=== PATIENT | male | born 1935 | race Caucasian/White ===

== ENCOUNTER 2016-03-18 11:35 | Inpatient (IN) | payer OTHER, MEDICARE ==
--- NOTE | 2016-03-18 11:46 | PN ---
Progress Note (short form) - Note Progress Note: Cardiology Consult/ H & P Dictated 80M with DM, HTN, hyperlipidemia, history of small bowel obstruction called Dr. Borjas today feeling feverish and with body aches, malaise, cough. Referred to ER for fever work up. REC: 1. Fever work up: CXR, UA and Culture, Blood cultures, Influenza swab 2. Basic labs: CBC, Chem 7, LFTs 3. Pulmonary and ID consults
[2016-03-18] MEDS ORDERED: SODIUM CHLORIDE 500 ML IV ONE (11:55)
[2016-03-18] MEDS ORDERED: SODIUM CHLORIDE 1,000 ML IV STA (11:55)
--- NOTE | 2016-03-18 11:59 | PDOC ---
History of Present Illness - General History Source: Patient Exam Limitations: No Limitations - History of Present Illness Initial Comments: 03/18/16 12:32 The patient is an 80 year old male with significant past medical history of hypertension, hyperlipidemia, diabetes, prior admission in July 2014 with pneumonia who presents to the emergency department sent by his PMD Dr. Borjas for further evaluation of cough, SOB, and fever for the last several days. The patient states he has had a productive cough for several weeks with yellow sputum. He also states he has been short of breath for the last several weeks even at rest. He reports some associated leg swelling. The patients son notes that 4 days ago his o2 sats were 84 on room air. The patient notes a fever today , Tmax 101 F, with associated chills. He has taken Tylenol for his symptoms with slight relief. He reports associated body aches and generalized weakness. The patient denies any nausea, vomiting, abdominal pain or diarrhea. The patient denies dysuria, frequency, and hematuria. He denies any sick contacts or recent travels. 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 Emmanuel <Brooke Norwood - Last Filed: 03/18/16 12:32> <Sage Gruber - Last Filed: 03/18/16 17:12> - General Chief Complaint: Lightheaded Stated Complaint: FEVER, HEADACHE, HIGH BP, DIZZINESS Time Seen by Provider: 03/18/16 11:55 Past History <Brooke Norwood - Last Filed: 03/18/16 12:32> - Past Medical History Diabetes: Yes HTN: Yes Hypercholesterolemia: Yes - Psycho/Social/Smoking Cessation Hx Anxiety: No Suicidal Ideation: No Smoking History: Never smoked Have you smoked in the past 12 months: No If you are a former smoker, when did you quit?: 25 yrs ago Hx Alcohol Use: Yes (SOCIAL) Drug/Substance Use Hx: No Substance Use Type: None Hx Substance Use Treatment: No <Sage Gruber - Last Filed: 03/18/16 17:12> - Past Medical History Allergies/Adverse Reactions: Allergies Allergy/AdvReac Type Severity Reaction Status Date / Time No Known Allergies Allergy Verified 03/18/16 11:51 Home Medications: Ambulatory Orders Atorvastatin Ca [Lipitor] 40 mg PO HS 11/24/13 Nifedipine [Procardia Xl] 60 mg PO DAILY 11/24/13 Aspirin [ASA -] 81 mg PO DAILY 07/24/14 Furosemide [Lasix -] 20 mg PO DAILY 07/24/14 Metformin HCl [Glucophage -] 500 mg PO DAILY 07/24/14 Quinapril HCl [Accupril -] 40 mg PO DAILY 07/24/14 Review of Systems - Review of Systems Constitutional: Yes: Chills, Fever. No: Night Sweats Respiratory: Yes: Cough, Shortness of Breath, SOB with Exertion Cardiac (ROS): Yes: Edema. No: Chest Pain, Palpitations ABD/GI: No: Diarrhea, Vomiting : No: Dysuria All Other Systems: Reviewed and Negative <Sage Gruber - Last Filed: 03/18/16 17:12> *Physical Exam - Vital Signs Last Vital Signs Temp Pulse Resp BP Pulse Ox 98.9 F 95 H 20 139/69 90 L 03/18/16 11:48 03/18/16 11:48 03/18/16 11:48 03/18/16 11:48 03/18/16 11:48 - Physical Exam Comments: 03/18/16 12:32 GENERAL: The patient is awake, alert, and fully oriented, in no acute distress. HEAD: Normal with no signs of trauma. EYES: Pupils equal, round and reactive to light, extraocular movements intact, sclera anicteric, conjunctiva clear with no pallor. ENT: Ears normal, nares patent, oropharynx clear without exudates. Moist mucous membranes. NECK: Normal range of motion, supple without lymphadenopathy, JVD, or masses. LUNGS: +Slightly decreased breath sounds bilaterally with expiratory wheezing bibasilar. No accessory muscle use. HEART: Regular rate and rhythm, normal S1 and S2 without murmur or rub. ABDOMEN: Soft/nontender/nondistended. BS wnl. No guarding or rebound. No palpable masses. No hepatosplenomegaly. EXTREMITIES:1+ pitting edema bilaterally to the mid lipscomb. Normal range of motion. No clubbing or cyanosis. No cords, erythema, or tenderness. NEUROLOGICAL: Cranial nerves II through XII grossly intact. Normal speech, normal gait. PSYCH: Normal mood, normal affect. SKIN: Warm, Dry, normal turgor, no rashes or lesions noted. <Brooke Norwood - Last Filed: 03/18/16 12:32> - Vital Signs Last Vital Signs Temp Pulse Resp BP Pulse Ox 98.9 F 95 H 20 139/69 90 L 03/18/16 11:48 03/18/16 11:48 03/18/16 11:48 03/18/16 11:48 03/18/16 11:48 <Sage Gruber - Last Filed: 03/18/16 17:12> Heart Score/ECG Review #1 ECG reviewed & interpreted by me at: 12:17 General ECG Interpretation: Sinus Rhythm, Normal Rate (94), Normal Intervals ( RBBB), No acute ischemic changes Compared to previous ECG there are: No significant change (c/w 07/2014) <Sage Gruber - Last Filed: 03/18/16 17:12> ED Treatment Course - LABORATORY CBC & Chemistry Diagram: 03/18/16 12:21 03/18/16 12:21 <Sage Gruber - Last Filed: 03/18/16 17:12> Medical Decision Making - Medical Decision Making 03/18/16 12:19 A portion of this note was documented by scribe services under my direction. I have reviewed the details of the note, within reason, and agree with the documentation with the following case summary and management plan written by me. 80-year-old male with history of hypertension, high cholesterol, diabetes, prior admission back in 2014 for pneumonia now presents with cough for 2 or 3 weeks now associated with fever for the last 4 days and progressive dyspnea on exertion. Patient called Dr. Borjas, his primary physician, who referred him to the ED. He was greeted by Dr. Emmanuel, who was made aware of the patient and saw him in the ED. Afebrile. O2 sat 90% on room air at triage Overall well-appearing with active cough during history Bibasilar decreased breath sounds with crackles and localized wheezing, otherwise good air entry Abdomen benign. Chronic ankle edema 80-year-old male with fever and cough, now feeling generally weak with shortness of breath. Rule out pneumonia, question CHF, question influenza. Sepsis protocol initiated given fevers at home Supplemental O2 sat, EKG, chest x-ray Will continue to follow with Dr. Emmanuel, likely admission to his service. 03/18/16 13:37 Chest x-ray read as normal, influenza negative. Labs notable for white count of 12, elevated lactate of 2.4, otherwise normal chemistries and normal troponin. Will proceed with IV fluid hydration. As discussed with Dr. Emmanuel, will check CTA to r/o PE or underlying lung disease. Will proceed with admission to Dr. Emmanuel for further workup, ? COPD, less likely CHF. Received nebs, will give steroids. 03/18/16 16:51 Lactate improved and normalized, CTA shows no PE but positive left lower lobe consolidation. Patient was treated for community-acquired pneumonia with ceftriaxone and azithromycin, given steroids. Will proceed with admission. <Sage Gruber - Last Filed: 03/18/16 17:12> *DC/Admit/Observation/Transfer - Attestations Scribe Attestion: 03/18/16 12:04 Documentation prepared by Brooke Norwood, acting as senior medical technologist for Sage Gruber MD. <Brooke Norwood - Last Filed: 03/18/16 12:32> - Discharge Dispostion Admit: Yes <Sage Gruber - Last Filed: 03/18/16 17:12> Diagnosis at time of Disposition: Cough, Hypoxia Fever Qualifiers: Fever type: unspecified Qualified Code(s): R50.9 - Fever, unspecified Pneumonia Qualifiers: Pneumonia type: due to unspecified organism Laterality: left Lung location: lower lobe of lung Qualified Code(s): J18.9 - Pneumonia, unspecified organism - Discharge Dispostion Condition at time of disposition: Fair - Referrals
[2016-03-18] MEDS ORDERED: ALBUTEROL SO4 2.5/IPRATROPIUM 0.5 INH SOL 3 ML VIAL.NEB. NEB ONE ×2 (12:36→12:45)
[2016-03-18 12:39] LABS: VENOUS PH 7.47 (7.31-7.41)
--- NOTE | 2016-03-18 12:43 | CONS ---
DATE OF CONSULTATION: DATE OF DICTATION: 03/18/2016 CHIEF COMPLAINT: Asked by Dr. Borjas to admit patient for fever workup. HISTORY OF PRESENT ILLNESS: The patient is my office patient. He is an 80-year-old male with diabetes, hypertension, hyperlipidemia, history of small-bowel obstruction, who presents to the ER after speaking with Dr. Borjas with 1 to 2 days of malaise, generalized fatigue, fever, and cough. He was sent to the ER for a fever workup. He feels diffuse body chills, generalized fatigue, and diffuse aches and pains. He denies nausea, vomiting. He denies diarrhea. He denies chest pain or palpitations. PAST MEDICAL HISTORY: Includes hypertension, diabetes, chronic diastolic CHF, hyperlipidemia. ALLERGIES: He has no known drug allergies. HOME MEDICATIONS: Include Accupril, Procardia, Glucophage, Lasix, Lipitor, and aspirin. FAMILY HISTORY: Brother had a myocardial infarction and in his late 60s. SOCIAL HISTORY: Nonsmoker. Drinks several glasses of wine daily. PHYSICAL EXAMINATION:General: Alert and oriented, in no distress. Vital Signs: Temperature 98.9 in the ER, pulse 95 and regular, blood pressure 140/70, weight 407, O2 saturation is 90% on room air. Neck: No JVD. Heart: S1, 2 regular. No murmurs. Chest: Diffuse mild expiratory wheezing. No rales. Abdomen: Soft, nontender. No rebound or guarding. Extremities: With chronic 1+ bilateral lower extremity edema. DIAGNOSTIC DATA: Labs are pending. EKG is pending. Chest x-ray is not officially read but upon my review shows no effusions, no clear infiltrates, possible atelectasis versus early infiltrate in the right middle lobe/lower lobe. ASSESSMENT: An 80-year-old man with diabetes presents to the emergency room with several days of cough, generalized malaise, fevers, and chills. PLAN: 1. Fever workup, including blood cultures, urine cultures, flu swab. 2. Pulmonary evaluation. 3. ID consultation. 4. Supplemental O2 as needed to maintain O2 saturation greater than 90%. 5. Will admit to telemetry. Further recommendations pending above diagnostics. MARY MEAD M.D. [id number]
[2016-03-18 12:45] LABS: BASOPHIL 0.6 % (0-2.0); EOSINOPHIL 1.2 % (0-4.5); MCH 31.1 pg (25.7-33.7); MCHC 34.3 g/dl (32.0-35.9); MEAN CELL VOLUME 90.6 fl (80-96); MEAN PLT VOLUME 8.1 fl (7.5-11.1); NEUTROPHILS 81.6 % (42.8-82.8); PLATELET COUNT 276 K/MM3 (134-434); WHITE BLOOD COUNT 12.1 K/mm3 (4.0-10.0)
[2016-03-18 13:00] LABS: INR 1.09 (0.82-1.09)
[2016-03-18 13:03] LABS: ACTIVATED PTT 35.1 SECONDS (26.9-34.4)
[2016-03-18 13:12] LABS: TROPONIN I < 0.02 ng/ml (0.00-0.05)
[2016-03-18 13:13] LABS: ALBUMIN 3.1 g/dl (3.4-5.0); ANION GAP 11 (8-16); CALCIUM 8.5 mg/dL (8.5-10.1); CO2 27 mmol/L (21-32); CREATININE 1.1 mg/dL (0.7-1.3); GLUCOSE,RANDOM 281 mg/dL (74-106); SGPT/ALT 31 U/L (12-78)
[2016-03-18 13:16] LABS: ALK PHOS 110 U/L (45-117)
[2016-03-18 13:18] LABS: BILIRUBIN,DIRECT < 0.1 mg/dL (0.0-0.2); SGOT/AST 43 U/L (15-37)
[2016-03-18] MEDS ORDERED: SODIUM CHLORIDE 500 ML IV STA (13:36)
[2016-03-18] MEDS ORDERED: methylPREDNISolone NA SUCC 125 MG/2 ML VIAL IVPB ONE (13:40)
[2016-03-18] MEDS ORDERED: AZITHROMYCIN IVPB 500 MG in DEXTROSE 5%-WATER - 250 ML IVPB ONE (13:44)
[2016-03-18] MEDS ORDERED: CEFTRIAXONE 1 GM in DEXTROSE 5%-WATER - 50 ML IVPB ONE (13:44)
[2016-03-18] MEDS ORDERED: methylPREDNISolone NA SUCC 125 MG/2 ML VIAL ONE (13:47)
[2016-03-18] MEDS ORDERED: CEFTRIAXONE 50 ML ONE (13:58)
[2016-03-18] MEDS ORDERED: AZITHROMYCIN IVPB 250 ML IVPB ONE (15:42)
--- NOTE | 2016-03-18 16:04 | EKG ---
Test Reason : Blood Pressure : / mmHG Vent. Rate : 094 BPM Atrial Rate : 094 BPM P-R Int : 148 ms QRS Dur : 142 ms QT Int : 386 ms P-R-T Axes : 073 065 036 degrees QTc Int : 482 ms NORMAL SINUS RHYTHM RIGHT BUNDLE BRANCH BLOCK ABNORMAL ECG WHEN COMPARED WITH ECG OF 24-NOV-2013 14:37, CRITERIA FOR INFERIOR INFARCT ARE NO LONGER PRESENT Confirmed by RAMA ANDERSON, DAY ([id number]) on 03/18/2016 4:03:49 PM Referred By: Confirmed By:DAY ONTIVEROS MD
[2016-03-18 16:13] VITALS: BMI 31.7
[2016-03-18] MEDS ORDERED: metFORMIN HCL 500 MG TABLET (FP) PO SCH (16:30)
[2016-03-18 16:59] LABS: URINE APPEARANCE CLEAR; URINE BILIRUBIN NEGATIVE (NEGATIVE); URINE BLOOD 1+ (NEGATIVE); URINE COLOR LTYELLOW; URINE GLUCOSE (UA) 2+ (NEGATIVE); URINE KETONE TRACE (NEGATIVE); URINE LEUK ESTERASE NEGATIVE (NEGATIVE); URINE NITRITE NEGATIVE (NEGATIVE); URINE PROTEIN NEGATIVE (NEGATIVE); URINE UROBILINOGEN NEGATIVE E.U./dl (0.2-1.0)
[2016-03-18 17:00] LABS: GRANULAR CASTS 1 /lpf; URINE MUCUS RARE; URINE RBC 3 /hpf (0-3); URINE WBC <1 /hpf (3-5)
[2016-03-18] MEDS: INSULIN SLIDING SCALE (NOVOLOG) 1 VIAL SQ SCH (17:03)
[2016-03-18] MEDS ORDERED: ACETAMINOPHEN 325 MG TABLET (FP) PO PRN (17:19)
--- NOTE | 2016-03-18 17:36 | PN ---
Progress Note (short form) - Note Progress Note: ID Consult dictated Community acquired v. atypical LLL pneumonia Possible viral syndrome Exacerbation COPD Pending workup, empiric zithromax/ceftriaxone Bronchodilators/ corticosteroids
--- NOTE | 2016-03-18 18:04 | CONS ---
INFECTIOUS DISEASE CONSULTATION DATE OF CONSULTATION: DATE OF DICTATION: 03/18/2016 HISTORY: Patient is an 80-year-old male evaluated for pneumonia. The patient reports developing worsening cough, sputum production, dyspnea and fever over the past 3-4 days. He had had a cough for approximately 2 weeks prior to onset of worsening symptoms. Family members had reported worsening symptoms over the past 3-4 days. He also experienced fever and lower extremity edema. He presented to the emergency room where he was noted to have fever. Chest x-ray was officially read as negative. Influenza rapid test was negative. He was noted to have an elevated lactic acid level. CAT scan of the chest shows some increased markings at the left lung base. He reports cough productive of yellowish sputum. Denies any hemoptysis. No complaint of chest pain. He has been in contact with a person with respiratory tract illnesses. He is a former smoker. He is up-to-date with respect to influenza and pneumococcal vaccines. No recent travel. No recent hospitalizations or antibiotic therapy. Patient was hospitalized for pneumonia in 2014. PAST MEDICAL HISTORY: Positive for: 1. Diabetes mellitus 2. Hypertension 3. Hypertension 4. Hyperlipidemia 5. Small bowel obstruction He denies history of COPD ALLERGIES: No known allergies MEDICATIONS: 1. Lipitor 2. Procardia 3. Aspirin 4. Lasix 5. Glucophage 6. Accupril SOCIAL HISTORY: Former smoker. Stopped many years ago. SYSTEMS REVIEW: Neurologic: No loss of consciousness, seizure activity, focal weakness Cardiac: Negative for chest pain or palpitations Respiratory: As per HPI Gastrointestinal: Negative for vomiting or diarrhea Genitourinary: Negative for urinary tract infection LAB DATA: 12.1, 81 neutrophils, 8 lymphocytes, 8 monocytes, hematocrit 42.2, platelet count 276. BUN 18, creatinine 1.1. Glucose 281. Urinalysis: 2 white cells. RADIOGRAPHIC FINDINGS: CAT scan shows changes consistent with COPD and patchy left lower lobe infiltrate. PHYSICAL EXAMINATION: General: He is slightly short of breath at rest, on nasal cannula. Vital signs: T-max 100.1, blood pressure 133/65, pulse 84/regular, respirations 18/minute. Sclera anicteric. Heart sounds: S1, S2 Lungs: Scattered rhonchi, basilar crepitations and mild wheezing bilaterally Abdomen: Abdomen is obese, soft, nontender. Extremities: 1+ edema IMPRESSION: 1. Community-acquire atypical left lower lobe pneumonia 2. Possible viral syndrome 3. Chronic obstructive pulmonary disease exacerbation RECOMMENDATIONS: 1. Obtain blood cultures, urine, legionella and pneumococcal antigens 2. Empiric antibiotic coverage with Zithromax and Ceftriaxone 3. Corticosteroids and held bronchodilators. 4. Will follow Thank you for the kind referral. MARY FRANCO M.D. [id number]
[2016-03-18] MEDS: ALBUTEROL SO4 0.083% IH SOL 2.5 MG/3 ML VIAL.NEB. NEB PRN ×2 (18:15→23:24)
[2016-03-19] MEDS: INSULIN SLIDING SCALE (NOVOLOG) 1 VIAL SQ SCH ×3 (06:27→16:59)
[2016-03-19] MEDS: ALBUTEROL SO4 0.083% IH SOL 2.5 MG/3 ML VIAL.NEB. NEB PRN (06:53)
[2016-03-19 07:22] LABS: BASOPHIL 0.8 % (0-2.0); MCH 31.2 pg (25.7-33.7); MCHC 34.4 g/dl (32.0-35.9); MEAN CELL VOLUME 90.6 fl (80-96); NEUTROPHILS 86.8 % (42.8-82.8); PLATELET COUNT 263 K/MM3 (134-434); RDW 12.8 % (11.9-15.9); WHITE BLOOD COUNT 10.9 K/mm3 (4.0-10.0)
[2016-03-19 07:49] LABS: CALCIUM 8.5 mg/dL (8.5-10.1); CREATININE 0.8 mg/dL (0.7-1.3)
[2016-03-19] MEDS ORDERED: PT OWN MED DRAWER 7, Y5N ONE (09:31)
[2016-03-19] MEDS: ASPIRIN 81 MG CHEWABLE TABLETS PO SCH (09:49)
[2016-03-19] MEDS: NIFEdipine E.R 60 MG TABLET (UD) PO SCH (09:49)
[2016-03-19] MEDS: CEFTRIAXONE 100 ML IVPB SCH (09:55)
[2016-03-19] MEDS: AZITHROMYCIN IVPB 250 ML IVPB SCH (09:55)
--- NOTE | 2016-03-19 10:08 | PN ---
Progress Note, Physician Chief Complaint: appreciate ID consult PNA on CTA - Current Medication List Current Medications: Active Medications Acetaminophen (Tylenol -) 650 mg PO Q6H PRN PRN Reason: FEVER OR PAIN Albuterol Sulfate (Ventolin 0.083% Nebulizer Soln -) 1 amp NEB Q4H PRN PRN Reason: SHORT OF BREATH/WHEEZING Last Admin: 03/19/16 06:53 Dose: 1 amp Aspirin (Asa -) 81 mg PO DAILY [facility] Last Admin: 03/19/16 09:49 Dose: 81 mg Azithromycin (Zithromax 500mg Ivpb (Pre-Docked)) 250 mls @ 250 mls/hr IVPB DAILY [facility] Last Admin: 03/19/16 09:55 Dose: 250 mls/hr Ceftriaxone Sodium (Rocephin 2gm Ivpb (Pre-Docked)) 100 mls @ 200 mls/hr IVPB DAILY [facility] Last Admin: 03/19/16 09:55 Dose: 200 mls/hr Insulin Aspart (Novolog Vial Sliding Scale -) 1 vial SQ TIDAC [facility] PRN Reason: Protocol Last Admin: 03/19/16 06:27 Dose: 2 units Nifedipine (Procardia Xl -) 60 mg PO DAILY [facility] Last Admin: 03/19/16 09:49 Dose: 60 mg Quinapril HCl (Accupril -) 20 mg PO DAILY [facility] - Objective Vital Signs: Vital Signs Temperature 98.1 F 03/19/16 06:00 Pulse Rate 76 03/19/16 06:00 Respiratory Rate 20 03/19/16 06:00 Blood Pressure 157/77 03/19/16 06:00 O2 Sat by Pulse Oximetry (%) 93 L 03/18/16 21:00 Constitutional: Yes: No Distress Eyes: Yes: Conjunctiva Clear Cardiovascular: Yes: Regular Rate and Rhythm Respiratory: Yes: Other (expiratory wheezing and rhonchi) Gastrointestinal: Yes: Soft (nontender) Edema: No Neurological: Yes: Alert, Oriented ...Motor Strength: WNL Labs: CBC, BMP 03/19/16 05:35 03/19/16 05:35 INR, PTT INR 1.09 (0.82-1.09) 03/18/16 12:01 Microbiology Laboratory Tests 03/19/16 03/19/16 05:35 05:35 WBC 10.9 H Hgb 13.4 Plt Count 263 Potassium 3.6 D BUN 15 Creatinine 0.8 D Random Glucose 299 H - ....Imaging Cat Scan: Report Reviewed EKG: Image Reviewed Assessment/Plan IMP: DM PNA REC: Abx as per ID Supplimental O2 Nebs Out of bed- venodynes while in bed.
--- NOTE | 2016-03-19 10:39 | PN ---
Progress Note, Physician History of Present Illness: Awake, alert Cough noted Breathing non-labored on nasal cannula Afebrile - Current Medication List Current Medications: Active Medications Acetaminophen (Tylenol -) 650 mg PO Q6H PRN PRN Reason: FEVER OR PAIN Albuterol Sulfate (Ventolin 0.083% Nebulizer Soln -) 1 amp NEB Q4H PRN PRN Reason: SHORT OF BREATH/WHEEZING Last Admin: 03/19/16 06:53 Dose: 1 amp Aspirin (Asa -) 81 mg PO DAILY [facility] Last Admin: 03/19/16 09:49 Dose: 81 mg Azithromycin (Zithromax 500mg Ivpb (Pre-Docked)) 250 mls @ 250 mls/hr IVPB DAILY [facility] Last Admin: 03/19/16 09:55 Dose: 250 mls/hr Ceftriaxone Sodium (Rocephin 2gm Ivpb (Pre-Docked)) 100 mls @ 200 mls/hr IVPB DAILY [facility] Last Admin: 03/19/16 09:55 Dose: 200 mls/hr Insulin Aspart (Novolog Vial Sliding Scale -) 1 vial SQ TIDAC [facility] PRN Reason: Protocol Last Admin: 03/19/16 06:27 Dose: 2 units Nifedipine (Procardia Xl -) 60 mg PO DAILY [facility] Last Admin: 03/19/16 09:49 Dose: 60 mg Quinapril HCl (Accupril -) 20 mg PO DAILY [facility] - Objective Vital Signs: Vital Signs Temperature 98.1 F 03/19/16 06:00 Pulse Rate 76 03/19/16 06:00 Respiratory Rate 20 03/19/16 06:00 Blood Pressure 157/77 03/19/16 06:00 O2 Sat by Pulse Oximetry (%) 93 L 03/18/16 21:00 Constitutional: Yes: No Distress Eyes: Yes: Conjunctiva Clear Cardiovascular: Yes: Regular Rate and Rhythm, S1, S2 Respiratory: Yes: Other (+ crepitations at bases) Gastrointestinal: Yes: Normal Bowel Sounds, Soft. No: Tenderness Edema: Yes Labs: CBC, BMP 03/19/16 05:35 03/19/16 05:35 INR, PTT INR 1.09 (0.82-1.09) 03/18/16 12:01 Assessment/Plan Community acquired v. atypical LLL pneumonia Possible viral syndrome Probable COPD exacerbation Await cultures Continue empiric zithromax/ ceftriaxone Bronchodilators
[2016-03-19] MEDS: QUINAPRIL HCL 20 MG TABLET (FP) PO SCH (11:00)
--- NOTE | 2016-03-19 16:48 | CONSULT ---
Consult Consult Specialty:: PULMONARY Referred by:: Dr. Emmanuel Reason for Consultation:: pneumonia - History of Present Illness Chief Complaint: fevers, cough, shortness of breath History of Present Illness: 80yo male with h/o HTN, DM, hyperlipidemia who presents with cough, fevers and shortness of breath x 2 weeks. He denies any chest pain or palpitations. + subjective fevers, recorded to 102 at home. He reports sick contacts, his brother is being treated for pneumonia. +cough productive of yellow sputum and wheezing. Son had a pulse oximeter at home and reported that his SpO2 was 84% on room air. He is not on home O2. He has not been on any recent antibiotics or recent hospitalizations. No recent travel. He did receive his flu vaccine this year. 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 History of Recent Travel: No Home Medications - Allergies Allergies/Adverse Reactions: Allergies Allergy/AdvReac Type Severity Reaction Status Date / Time No Known Allergies Allergy Verified 03/18/16 11:51 - Home Medications Home Medications: Ambulatory Orders Atorvastatin Ca [Lipitor] 40 mg PO HS 11/24/13 Nifedipine [Procardia Xl] 60 mg PO DAILY 11/24/13 Aspirin [ASA -] 81 mg PO DAILY 07/24/14 Furosemide [Lasix -] 20 mg PO DAILY 07/24/14 Metformin HCl [Glucophage -] 500 mg PO DAILY 07/24/14 Quinapril HCl [Accupril -] 40 mg PO DAILY 07/24/14 Family Disease History - Family Disease History Family Disease History: Other: Mother (thyroid cancer) Review of Systems - Review of Systems Constitutional: reports: Chills, Fever, Malaise Eyes: denies: Recent Change in Vision HENT: denies: Nasal Congestion, Throat Pain Neck: denies: Stiffness, Tenderness Cardiovascular: reports: Shortness of Breath. denies: Chest Pain, Edema, Palpitations Respiratory: reports: Cough, SOB, SOB on Exertion, Wheezing. denies: Hemoptysis Gastrointestinal: denies: Abdominal Pain, Nausea, Vomiting Genitourinary: denies: Dysuria, Hematuria Musculoskeletal: reports: Muscle Cramps Neurological: reports: Dizziness. denies: Headache Physical Exam Vital Sings: Vital Signs Temperature 98.7 F 03/19/16 14:48 Pulse Rate 78 03/19/16 14:48 Respiratory Rate 20 03/19/16 14:48 Blood Pressure 138/64 03/19/16 14:48 O2 Sat by Pulse Oximetry (%) 96 03/19/16 12:10 Constitutional: Yes: Calm Eyes: Yes: Conjunctiva Clear, EOM Intact HENT: Yes: Atraumatic, Normocephalic Neck: Yes: Trachea Midline Cardiovascular: Yes: Regular Rate and Rhythm Respiratory: Yes: Rhonchi, Wheezes ...Clubbing: No Gastrointestinal: Yes: Normal Bowel Sounds, Soft. No: Tenderness Edema: Yes (trace) Neurological: Yes: Alert, Oriented Labs: CBC, BMP 03/19/16 05:35 03/19/16 05:35 Imaging - Results Cat Scan: Report Reviewed, Image Reviewed (LLL infiltrate) Problem List - Problems (1) Pneumonia Code(s): J18.9 - PNEUMONIA, UNSPECIFIED ORGANISM Qualifiers: Pneumonia type: due to unspecified organism Laterality: left Lung location: lower lobe of lung Qualified Code(s): J18.9 - Pneumonia, unspecified organism (2) Hypoxia Code(s): R09.02 - HYPOXEMIA (3) Diabetes Code(s): E11.9 - TYPE 2 DIABETES MELLITUS WITHOUT COMPLICATIONS (4) HTN (hypertension) Code(s): I10 - ESSENTIAL (PRIMARY) HYPERTENSION (5) Acute bronchospasm Code(s): J98.01 - ACUTE BRONCHOSPASM Assessment/Plan LLL Pneumonia Acute Bronchospasm HTN DM - continue antibiotics for CAP - f/u cultures - will give short course of medrol for bronchospasm - inhaled bronchodilators - glucose control while on systemic steroids - O2 to keep SpO2 >90% - DVT prophylaxis Thank you for this consult Blake Cueto MD
[2016-03-19] MEDS: ALBUTEROL SO4 2.5/IPRATROPIUM 0.5 INH SOL 3 ML VIAL.NEB. NEB SCH (21:45)
[2016-03-19] MEDS: methylPREDNISolone NA SUCC 40 MG/1 ML VIAL IVPB SCH (22:57)
[2016-03-20] MEDS: INSULIN SLIDING SCALE (NOVOLOG) 1 VIAL SQ SCH ×5 (06:18→22:19)
[2016-03-20] MEDS: ALBUTEROL SO4 2.5/IPRATROPIUM 0.5 INH SOL 3 ML VIAL.NEB. NEB SCH ×3 (06:38→22:03)
[2016-03-20 08:30] LABS: EOSINOPHIL 0.1 % (0-4.5); MCH 30.9 pg (25.7-33.7); MCHC 33.8 g/dl (32.0-35.9); MEAN CELL VOLUME 91.4 fl (80-96); MEAN PLT VOLUME 8.1 fl (7.5-11.1); PLATELET COUNT 320 K/MM3 (134-434); RDW 13.2 % (11.9-15.9); WHITE BLOOD COUNT 9.3 K/mm3 (4.0-10.0)
[2016-03-20 08:38] LABS: CALCIUM 8.6 mg/dL (8.5-10.1)
[2016-03-20 08:42] LABS: CREATININE 0.8 mg/dL (0.7-1.3)
[2016-03-20] MEDS: ASPIRIN 81 MG CHEWABLE TABLETS PO SCH ×2 (08:48→09:23)
[2016-03-20] MEDS: QUINAPRIL HCL 20 MG TABLET (FP) PO SCH ×2 (08:48→09:23)
[2016-03-20] MEDS: NIFEdipine E.R 60 MG TABLET (UD) PO SCH ×2 (08:48→09:23)
[2016-03-20] MEDS: AZITHROMYCIN IVPB 250 ML IVPB SCH ×2 (08:49→09:23)
[2016-03-20] MEDS: CEFTRIAXONE 100 ML IVPB SCH ×2 (08:49→09:23)
[2016-03-20] MEDS: methylPREDNISolone NA SUCC 40 MG/1 ML VIAL IVPB SCH ×3 (08:50→22:20)
--- NOTE | 2016-03-20 09:44 | PN ---
Progress Note, Physician Chief Complaint: feels fine TELE: sinus out of bed History of Present Illness: no BM - Current Medication List Current Medications: Active Medications Acetaminophen (Tylenol -) 650 mg PO Q6H PRN PRN Reason: FEVER OR PAIN Albuterol Sulfate (Ventolin 0.083% Nebulizer Soln -) 1 amp NEB Q4H PRN PRN Reason: SHORT OF BREATH/WHEEZING Last Admin: 03/19/16 06:53 Dose: 1 amp Albuterol/Ipratropium (Duoneb -) 1 amp NEB TIDR [facility] Last Admin: 03/20/16 06:38 Dose: 1 amp Aspirin (Asa -) 81 mg PO DAILY [facility] Last Admin: 03/20/16 09:23 Dose: Not Given Azithromycin (Zithromax 500mg Ivpb (Pre-Docked)) 250 mls @ 250 mls/hr IVPB DAILY [facility] Last Admin: 03/20/16 09:23 Dose: Not Given Ceftriaxone Sodium (Rocephin 2gm Ivpb (Pre-Docked)) 100 mls @ 200 mls/hr IVPB DAILY [facility] Last Admin: 03/20/16 09:23 Dose: Not Given Insulin Aspart (Novolog Vial Sliding Scale -) 1 vial SQ TIDAC [facility] PRN Reason: Protocol Last Admin: 03/20/16 06:18 Dose: 4 units Methylprednisolone Sodium Succinate (Solu-Medrol -) 40 mg IVPB BID [facility] Last Admin: 03/20/16 09:23 Dose: Not Given Nifedipine (Procardia Xl -) 60 mg PO DAILY [facility] Last Admin: 03/20/16 09:23 Dose: Not Given Quinapril HCl (Accupril -) 20 mg PO DAILY [facility] Last Admin: 03/20/16 09:23 Dose: Not Given - Objective Vital Signs: Vital Signs Temperature 98.0 F 03/20/16 06:00 Pulse Rate 70 03/20/16 06:00 Respiratory Rate 20 03/20/16 06:00 Blood Pressure 147/62 03/20/16 06:00 O2 Sat by Pulse Oximetry (%) 93 L 03/19/16 21:00 Constitutional: Yes: No Distress Cardiovascular: Yes: Regular Rate and Rhythm Respiratory: Yes: Other (decreased at bases, no wheezing) Gastrointestinal: Yes: Soft Edema: No Neurological: Yes: Alert Labs: CBC, BMP 03/20/16 06:05 03/20/16 06:05 INR, PTT INR 1.09 (0.82-1.09) 03/18/16 12:01 Microbiology 03/18/16 12:00 Blood - Peripheral Venous Blood Culture - Preliminary NO GROWTH OBTAINED AFTER 24 HOURS, INCUBATION TO CONTINUE FOR 4 DAYS. 03/18/16 12:00 Blood - Peripheral Venous Blood Culture - Preliminary NO GROWTH OBTAINED AFTER 24 HOURS, INCUBATION TO CONTINUE FOR 4 DAYS. Laboratory Tests 03/20/16 03/20/16 06:05 06:05 WBC 9.3 Hgb 13.5 Plt Count 320 D Sodium 136 Potassium 4.1 BUN 21 H D Creatinine 0.8 Assessment/Plan Assessment/Plan IMP: DM PNA REC: Abx as per ID Supplimental O2 as needed Nebs Out of bed- venodynes while in bed. Colace PRN Plan for d/c when ID determines abx can be swtiched to PO.
[2016-03-20] MEDS: DOCUSATE SODIUM 100 MG CAPSULE (FP) PO SCH ×2 (10:53→22:18)
--- NOTE | 2016-03-20 12:22 | PN ---
Progress Note, Physician History of Present Illness: PULMONARY - Current Medication List Current Medications: Active Medications Acetaminophen (Tylenol -) 650 mg PO Q6H PRN PRN Reason: FEVER OR PAIN Albuterol Sulfate (Ventolin 0.083% Nebulizer Soln -) 1 amp NEB Q4H PRN PRN Reason: SHORT OF BREATH/WHEEZING Last Admin: 03/19/16 06:53 Dose: 1 amp Albuterol/Ipratropium (Duoneb -) 1 amp NEB TIDR [facility] Last Admin: 03/20/16 06:38 Dose: 1 amp Aspirin (Asa -) 81 mg PO DAILY [facility] Last Admin: 03/20/16 09:23 Dose: Not Given Docusate Sodium (Colace -) 100 mg PO BID [facility] Last Admin: 03/20/16 10:53 Dose: 100 mg Azithromycin (Zithromax 500mg Ivpb (Pre-Docked)) 250 mls @ 250 mls/hr IVPB DAILY [facility] Last Admin: 03/20/16 09:23 Dose: Not Given Ceftriaxone Sodium (Rocephin 2gm Ivpb (Pre-Docked)) 100 mls @ 200 mls/hr IVPB DAILY [facility] Last Admin: 03/20/16 09:23 Dose: Not Given Insulin Aspart (Novolog Vial Sliding Scale -) 1 vial SQ TIDAC [facility] PRN Reason: Protocol Methylprednisolone Sodium Succinate (Solu-Medrol -) 40 mg IVPB BID [facility] Last Admin: 03/20/16 09:23 Dose: Not Given Nifedipine (Procardia Xl -) 60 mg PO DAILY [facility] Last Admin: 03/20/16 09:23 Dose: Not Given Quinapril HCl (Accupril -) 20 mg PO DAILY [facility] Last Admin: 03/20/16 09:23 Dose: Not Given - Objective Vital Signs: Vital Signs Temperature 98.0 F 03/20/16 06:00 Pulse Rate 70 03/20/16 06:00 Respiratory Rate 20 03/20/16 06:00 Blood Pressure 147/62 03/20/16 06:00 O2 Sat by Pulse Oximetry (%) 93 L 03/19/16 21:00 Constitutional: Yes: Well Nourished, Calm Eyes: Yes: WNL HENT: Yes: WNL Neck: Yes: WNL Cardiovascular: Yes: Regular Rate and Rhythm, S1, S2 Respiratory: Yes: Rhonchi (BILATERAL RHONCHI) Gastrointestinal: Yes: Normal Bowel Sounds, Soft Extremities: Yes: WNL Edema: No Labs: CBC, BMP 03/20/16 06:05 03/20/16 06:05 INR, PTT INR 1.09 (0.82-1.09) 03/18/16 12:01 Assessment/Plan Problem List - Problems (1) Pneumonia Code(s): J18.9 - PNEUMONIA, UNSPECIFIED ORGANISM Qualifiers: Pneumonia type: due to unspecified organism Laterality: left Lung location: lower lobe of lung Qualified Code(s): J18.9 - Pneumonia, unspecified organism (2) Hypoxia Code(s): R09.02 - HYPOXEMIA (3) Diabetes Code(s): E11.9 - TYPE 2 DIABETES MELLITUS WITHOUT COMPLICATIONS (4) HTN (hypertension) Code(s): I10 - ESSENTIAL (PRIMARY) HYPERTENSION (5) Acute bronchospasm Code(s): J98.01 - ACUTE BRONCHOSPASM Assessment/Plan LLL Pneumonia Acute Bronchospasm HTN DM - continue antibiotics for CAP - continue medrol - inhaled bronchodilators - glucose control while on systemic steroids - O2 to keep SpO2 >90% - DVT prophylaxis DR MOLINA
--- NOTE | 2016-03-20 15:34 | PN ---
Progress Note, Physician History of Present Illness: No complaints No c/o chest pain/ dyspnea/ cough No c/o fever/chills Temps down- afebrile WBC WNL Blood c/s no growth - Current Medication List Current Medications: Active Medications Acetaminophen (Tylenol -) 650 mg PO Q6H PRN PRN Reason: FEVER OR PAIN Albuterol Sulfate (Ventolin 0.083% Nebulizer Soln -) 1 amp NEB Q4H PRN PRN Reason: SHORT OF BREATH/WHEEZING Last Admin: 03/19/16 06:53 Dose: 1 amp Albuterol/Ipratropium (Duoneb -) 1 amp NEB TIDR [facility] Last Admin: 03/20/16 13:56 Dose: 1 amp Aspirin (Asa -) 81 mg PO DAILY [facility] Last Admin: 03/20/16 09:23 Dose: Not Given Docusate Sodium (Colace -) 100 mg PO BID [facility] Last Admin: 03/20/16 10:53 Dose: 100 mg Azithromycin (Zithromax 500mg Ivpb (Pre-Docked)) 250 mls @ 250 mls/hr IVPB DAILY [facility] Last Admin: 03/20/16 09:23 Dose: Not Given Ceftriaxone Sodium (Rocephin 2gm Ivpb (Pre-Docked)) 100 mls @ 200 mls/hr IVPB DAILY [facility] Last Admin: 03/20/16 09:23 Dose: Not Given Insulin Aspart (Novolog Vial Sliding Scale -) 1 vial SQ TIDAC [facility] PRN Reason: Protocol Last Admin: 03/20/16 13:57 Dose: 12 units Methylprednisolone Sodium Succinate (Solu-Medrol -) 40 mg IVPB BID [facility] Last Admin: 03/20/16 09:23 Dose: Not Given Nifedipine (Procardia Xl -) 60 mg PO DAILY [facility] Last Admin: 03/20/16 09:23 Dose: Not Given Quinapril HCl (Accupril -) 20 mg PO DAILY [facility] Last Admin: 03/20/16 09:23 Dose: Not Given - Objective Vital Signs: Vital Signs Temperature 98.2 F 03/20/16 14:10 Pulse Rate 73 03/20/16 14:10 Respiratory Rate 20 03/20/16 14:10 Blood Pressure 142/65 03/20/16 14:10 O2 Sat by Pulse Oximetry (%) 92 L 03/20/16 13:55 Constitutional: Yes: No Distress Eyes: Yes: Conjunctiva Clear Cardiovascular: Yes: Regular Rate and Rhythm, S1, S2 Respiratory: Yes: CTA Bilaterally Gastrointestinal: Yes: Normal Bowel Sounds, Soft. No: Tenderness Edema: Yes Edema: LLE: 1+, RLE: 1+ Labs: CBC, BMP 03/20/16 06:05 03/20/16 06:05 INR, PTT INR 1.09 (0.82-1.09) 03/18/16 12:01 Assessment/Plan Community acquired v. atypical LLL pneumonia Possible viral syndrome Probable COPD exacerbation Continue empiric zithromax/ ceftriaxone Bronchodilators
[2016-03-20] MEDS: INSULIN DETEMIR 100 UNITS/ML MDV SQ SCH (21:00)
[2016-03-21] MEDS: INSULIN SLIDING SCALE (NOVOLOG) 1 VIAL SQ SCH ×4 (06:17→22:52)
[2016-03-21] MEDS: metFORMIN HCL 500 MG TABLET (FP) PO SCH ×2 (06:17→17:13)
[2016-03-21] MEDS: INSULIN DETEMIR 100 UNITS/ML MDV SQ SCH (06:17)
[2016-03-21] MEDS: ALBUTEROL SO4 2.5/IPRATROPIUM 0.5 INH SOL 3 ML VIAL.NEB. NEB SCH ×3 (06:58→23:40)
--- NOTE | 2016-03-21 10:05 | PN ---
Progress Note, Physician - Current Medication List Current Medications: Active Medications Acetaminophen (Tylenol -) 650 mg PO Q6H PRN PRN Reason: FEVER OR PAIN Albuterol Sulfate (Ventolin 0.083% Nebulizer Soln -) 1 amp NEB Q4H PRN PRN Reason: SHORT OF BREATH/WHEEZING Last Admin: 03/19/16 06:53 Dose: 1 amp Albuterol/Ipratropium (Duoneb -) 1 amp NEB TIDR [facility] Last Admin: 03/21/16 06:58 Dose: 1 amp Aspirin (Asa -) 81 mg PO DAILY [facility] Last Admin: 03/20/16 09:23 Dose: Not Given Docusate Sodium (Colace -) 100 mg PO BID [facility] Last Admin: 03/20/16 22:18 Dose: 100 mg Azithromycin (Zithromax 500mg Ivpb (Pre-Docked)) 250 mls @ 250 mls/hr IVPB DAILY [facility] Last Admin: 03/20/16 09:23 Dose: Not Given Ceftriaxone Sodium (Rocephin 2gm Ivpb (Pre-Docked)) 100 mls @ 200 mls/hr IVPB DAILY [facility] Last Admin: 03/20/16 09:23 Dose: Not Given Insulin Aspart (Novolog Vial Sliding Scale -) 1 vial SQ ACHS [facility] PRN Reason: Protocol Last Admin: 03/21/16 06:17 Dose: 5 units Insulin Detemir (Levemir Vial) 25 units SQ AM [facility] Last Admin: 03/21/16 06:17 Dose: 25 units Metformin HCl (Glucophage -) 500 mg PO BID@0700,1630 [facility] Last Admin: 03/21/16 06:17 Dose: 500 mg Methylprednisolone Sodium Succinate (Solu-Medrol -) 40 mg IVPB BID [facility] Last Admin: 03/20/16 22:20 Dose: 40 mg Nifedipine (Procardia Xl -) 60 mg PO DAILY [facility] Last Admin: 03/20/16 09:23 Dose: Not Given Quinapril HCl (Accupril -) 20 mg PO DAILY [facility] Last Admin: 03/20/16 09:23 Dose: Not Given - Objective Vital Signs: Vital Signs Temperature 97.8 F 03/21/16 06:00 Pulse Rate 66 03/21/16 06:00 Respiratory Rate 20 03/21/16 06:00 Blood Pressure 140/72 03/21/16 06:00 O2 Sat by Pulse Oximetry (%) 94 L 03/20/16 21:00 Eyes: Yes: WNL, Conjunctiva Clear, EOM Intact HENT: Yes: WNL, Atraumatic, Normocephalic Neck: Yes: WNL, Supple, Trachea Midline Cardiovascular: Yes: WNL, Regular Rate and Rhythm Respiratory: Yes: WNL, Regular, CTA Bilaterally Gastrointestinal: Yes: WNL, Normal Bowel Sounds Genitourinary: Yes: WNL Musculoskeletal: Yes: WNL Extremities: Yes: WNL Edema: No Integumentary: Yes: WNL Neurological: Yes: WNL, Alert, Oriented ...Motor Strength: WNL Psychiatric: Yes: WNL Labs: CBC, BMP 03/20/16 06:05 03/20/16 06:05 INR, PTT INR 1.09 (0.82-1.09) 03/18/16 12:01 Assessment/Plan IMP: DM PNA REC: Abx as per ID Supplimental O2 as needed Nebs Out of bed- venodynes while in bed. Colace PRN Plan for d/c when ID determines abx can be swtiched to PO.
[2016-03-21] MEDS: NIFEdipine E.R 60 MG TABLET (UD) PO SCH (10:11)
[2016-03-21] MEDS: methylPREDNISolone NA SUCC 40 MG/1 ML VIAL IVPB SCH ×2 (10:12→22:51)
[2016-03-21] MEDS: CEFTRIAXONE 100 ML IVPB SCH (10:12)
[2016-03-21] MEDS: QUINAPRIL HCL 20 MG TABLET (FP) PO SCH (10:12)
[2016-03-21] MEDS: AZITHROMYCIN IVPB 250 ML IVPB SCH (10:12)
[2016-03-21] MEDS: ASPIRIN 81 MG CHEWABLE TABLETS PO SCH (10:12)
[2016-03-21] MEDS: DOCUSATE SODIUM 100 MG CAPSULE (FP) PO SCH ×2 (10:12→22:52)
--- NOTE | 2016-03-21 10:26 | PN ---
Progress Note, Physician History of Present Illness: PULMONARY ALERT,FEELING BETTER,LESS CONGESTED - Current Medication List Current Medications: Active Medications Acetaminophen (Tylenol -) 650 mg PO Q6H PRN PRN Reason: FEVER OR PAIN Albuterol Sulfate (Ventolin 0.083% Nebulizer Soln -) 1 amp NEB Q4H PRN PRN Reason: SHORT OF BREATH/WHEEZING Last Admin: 03/19/16 06:53 Dose: 1 amp Albuterol/Ipratropium (Duoneb -) 1 amp NEB TIDR [facility] Last Admin: 03/21/16 06:58 Dose: 1 amp Aspirin (Asa -) 81 mg PO DAILY [facility] Last Admin: 03/21/16 10:12 Dose: 81 mg Docusate Sodium (Colace -) 100 mg PO BID [facility] Last Admin: 03/21/16 10:12 Dose: 100 mg Azithromycin (Zithromax 500mg Ivpb (Pre-Docked)) 250 mls @ 250 mls/hr IVPB DAILY [facility] Last Admin: 03/21/16 10:12 Dose: 250 mls/hr Ceftriaxone Sodium (Rocephin 2gm Ivpb (Pre-Docked)) 100 mls @ 200 mls/hr IVPB DAILY [facility] Last Admin: 03/21/16 10:12 Dose: 200 mls/hr Insulin Aspart (Novolog Vial Sliding Scale -) 1 vial SQ ACHS [facility] PRN Reason: Protocol Last Admin: 03/21/16 06:17 Dose: 5 units Insulin Detemir (Levemir Vial) 25 units SQ AM [facility] Last Admin: 03/21/16 06:17 Dose: 25 units Metformin HCl (Glucophage -) 500 mg PO BID@0700,1630 [facility] Last Admin: 03/21/16 06:17 Dose: 500 mg Methylprednisolone Sodium Succinate (Solu-Medrol -) 40 mg IVPB BID [facility] Last Admin: 03/21/16 10:12 Dose: 40 mg Nifedipine (Procardia Xl -) 60 mg PO DAILY [facility] Last Admin: 03/21/16 10:11 Dose: 60 mg Quinapril HCl (Accupril -) 20 mg PO DAILY [facility] Last Admin: 03/21/16 10:12 Dose: 20 mg - Objective Vital Signs: Vital Signs Temperature 97.8 F 03/21/16 06:00 Pulse Rate 66 03/21/16 06:00 Respiratory Rate 20 03/21/16 06:00 Blood Pressure 140/72 03/21/16 06:00 O2 Sat by Pulse Oximetry (%) 94 L 03/20/16 21:00 Constitutional: Yes: Well Nourished, Calm Eyes: Yes: WNL HENT: Yes: WNL Neck: Yes: WNL Cardiovascular: Yes: Regular Rate and Rhythm, S1, S2 Respiratory: Yes: Rhonchi, Wheezes (SCATTERED KIMI RHONCHI) Gastrointestinal: Yes: Normal Bowel Sounds, Soft Extremities: Yes: WNL Edema: No Assessment/Plan Problem List - Problems (1) Pneumonia Code(s): J18.9 - PNEUMONIA, UNSPECIFIED ORGANISM Qualifiers: Pneumonia type: due to unspecified organism Laterality: left Lung location: lower lobe of lung Qualified Code(s): J18.9 - Pneumonia, unspecified organism (2) Hypoxia Code(s): R09.02 - HYPOXEMIA (3) Diabetes Code(s): E11.9 - TYPE 2 DIABETES MELLITUS WITHOUT COMPLICATIONS (4) HTN (hypertension) Code(s): I10 - ESSENTIAL (PRIMARY) HYPERTENSION (5) Acute bronchospasm Code(s): J98.01 - ACUTE BRONCHOSPASM Assessment/Plan LLL Pneumonia Acute Bronchospasm HTN DM - continue antibiotics for CAP - continue medrol - inhaled bronchodilators - glucose control while on systemic steroids - O2 to keep SpO2 >90% - DVT prophylaxis DR MOLINA
[2016-03-21] MEDS ORDERED: INSULIN DETEMIR 100 UNITS/ML MDV SQ SCH (23:21)
--- NOTE | 2016-03-21 23:27 | CONSULT ---
Consult Consult Specialty:: endocrine Referred by:: dr.[email or web address] larsen Reason for Consultation:: uncontrolled diabetes mellitus/insulin ressistant - History of Present Illness Chief Complaint: high sugars History of Present Illness: 80yo male with h/o HTN, DM, hyperlipidemia who presents with cough, fevers and shortness of breath x 2 weeks.since admission has required higher insulin coverage,partly respiratory difficulty and pneumonia complicated with requirement of steroids for copd.He has noted improvement in breathing and appetite,denies chest pain,nausea or vomiting,in past takes metformin and yet does not check his sugar because of vision impaired - History Source History Provided By: Patient Limitations to Obtaining History: Clinical Condition - Past Medical History Cardio/Vascular: Yes: HTN, Other (RBBB, 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 History of Recent Travel: No Home Medications - Allergies Allergies/Adverse Reactions: Allergies Allergy/AdvReac Type Severity Reaction Status Date / Time No Known Allergies Allergy Verified 03/18/16 11:51 - Home Medications Home Medications: Ambulatory Orders Atorvastatin Ca [Lipitor] 40 mg PO HS 11/24/13 Nifedipine [Procardia Xl] 60 mg PO DAILY 11/24/13 Aspirin [ASA -] 81 mg PO DAILY 07/24/14 Furosemide [Lasix -] 20 mg PO DAILY 07/24/14 Metformin HCl [Glucophage -] 500 mg PO DAILY 07/24/14 Quinapril HCl [Accupril -] 40 mg PO DAILY 07/24/14 Family Disease History - Family Disease History Family Disease History: Other: Mother (thyroid cancer) Review of Systems - Review of Systems Constitutional: reports: Lethargy, Weakness Eyes: reports: Blurred Vision HENT: reports: No Symptoms Cardiovascular: reports: Shortness of Breath Respiratory: reports: Exercise Intolerance, SOB on Exertion Gastrointestinal: reports: Abdominal Pain Genitourinary: reports: No Symptoms Breasts: reports: No Symptoms Reported Musculoskeletal: reports: Muscle Pain, Muscle Weakness Integumentary: reports: No Symptoms Neurological: reports: Weakness Endocrine: reports: Increased Hunger, Unexplained Weight Gain Hematology/Lymphatic: reports: No Symptoms Psychiatric: reports: No Symptoms Physical Exam Vital Signs: Vital Signs Temperature 98 F 03/21/16 21:00 Pulse Rate 72 03/21/16 21:00 Respiratory Rate 20 03/21/16 21:00 Blood Pressure 134/65 03/21/16 21:00 O2 Sat by Pulse Oximetry (%) 96 03/21/16 21:00 Constitutional: Yes: Anxious Eyes: Yes: EOM Intact HENT: Yes: Normocephalic Neck: Yes: Trachea Midline Cardiovascular: Yes: Regular Rate and Rhythm Respiratory: Yes: On Nasal O2, Rhonchi, Tachypnea Gastrointestinal: Yes: Normal Bowel Sounds ...Rectal Exam: Yes: Deferred Renal/: Yes: WNL Breast(s): Yes: WNL Musculoskeletal: Yes: WNL Extremities: Yes: WNL Edema: No Peripheral Pulses WNL: Yes Neurological: Yes: WNL, Alert, Oriented ...Motor Strength: WNL Labs: CBC, BMP 03/20/16 06:05 03/20/16 06:05 Problem List - Problems (1) HTN (hypertension) Code(s): I10 - ESSENTIAL (PRIMARY) HYPERTENSION (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 Code(s): E11.319 - TYPE 2 DIABETES W UNSP DIABETIC RTNOP W/O MACULAR EDEMA (3) Type 2 diabetes mellitus with hyperosmolarity without nonketotic hyperglycemic-hyperosmolar coma ([facility]) Code(s): E11.00 - TYPE 2 DIAB W HYPROSM W/O NONKET HYPRGLY-HYPROS COMA ([facility]) Assessment/Plan Current Active Problems uncontrolled iddm hyperglycemia insulin resistant Acute bronchospasm (Acute) Cough (Acute) Fever (Acute) Hypoxia (Acute) Pneumonia (Acute) Laboratory Tests 03/20/16 03/20/16 03/21/16 06:05 06:12 05:00 Sodium 136 Potassium 4.1 Chloride 100 Carbon Dioxide 30 Anion Gap 6 L BUN 21 H D Creatinine 0.8 POC Glucometer 306 Random Glucose 313 H* Hemoglobin A1c % 7.9 H D Calcium 8.6 Current Medications Generic Name Dose Route Start Last Admin Trade Name Serge PRN Reason Stop Dose Admin Acetaminophen 650 mg 03/18/16 17:19 Tylenol - PO Q6H PRN FEVER OR PAIN Albuterol Sulfate 1 amp 03/18/16 17:17 03/19/16 06:53 Ventolin 0.083% Nebulizer Soln - NEB 1 amp Q4H PRN Administration SHORT OF BREATH/WHEEZING Albuterol/Ipratropium 1 amp 03/19/16 22:00 03/21/16 13:50 Duoneb - NEB 1 amp TIDR [facility] Administration Aspirin 81 mg 03/19/16 10:00 03/21/16 10:12 Asa - PO 81 mg DAILY [facility] Administration Docusate Sodium 100 mg 03/20/16 10:00 03/21/16 22:52 Colace - PO 100 mg BID [facility] Administration Azithromycin 250 mls @ 250 mls/hr 03/19/16 10:00 03/21/16 10:12 Zithromax 500mg Ivpb (Pre-Docked) IVPB 250 mls/hr DAILY [facility] Administration Ceftriaxone Sodium 100 mls @ 200 mls/hr 03/19/16 10:00 03/21/16 10:12 Rocephin 2gm Ivpb (Pre-Docked) IVPB 200 mls/hr DAILY [facility] Administration Insulin Aspart 1 vial 03/20/16 22:00 03/21/16 22:52 Novolog Vial Sliding Scale - SQ 6 units ACHS [facility] Administration Protocol Insulin Detemir 35 units 03/21/16 23:21 Levemir Vial SQ AM [facility] Metformin HCl 500 mg 03/21/16 07:00 03/21/16 17:13 Glucophage - PO 500 mg BID@0700,1630 [facility] Administration Methylprednisolone Sodium Succinate 40 mg 03/19/16 22:00 03/21/16 22:51 Solu-Medrol - IVPB 40 mg BID [facility] Administration Nifedipine 60 mg 03/19/16 10:00 03/21/16 10:11 Procardia Xl - PO 60 mg DAILY [facility] Administration Quinapril HCl 20 mg 03/19/16 10:00 03/21/16 10:12 Accupril - PO 20 mg DAILY [facility] Administration plan: bgm achs novolog coverage continue metformin 500mg bid add januvia 50mg bid levemir titrate dose up for bs controll 35 units am
[2016-03-22] MEDS: ALBUTEROL SO4 2.5/IPRATROPIUM 0.5 INH SOL 3 ML VIAL.NEB. NEB SCH ×2 (06:29→13:20)
[2016-03-22] MEDS: sitaGLIPtin PHOSPHATE 50 MG TABLET PO SCH ×2 (06:47→16:49)
[2016-03-22] MEDS: metFORMIN HCL 500 MG TABLET (FP) PO SCH ×2 (06:47→16:49)
[2016-03-22] MEDS: INSULIN SLIDING SCALE (NOVOLOG) 1 VIAL SQ SCH ×2 (06:49→11:42)
--- NOTE | 2016-03-22 09:53 | PN ---
Progress Note, Physician - Current Medication List Current Medications: Active Medications Acetaminophen (Tylenol -) 650 mg PO Q6H PRN PRN Reason: FEVER OR PAIN Albuterol Sulfate (Ventolin 0.083% Nebulizer Soln -) 1 amp NEB Q4H PRN PRN Reason: SHORT OF BREATH/WHEEZING Last Admin: 03/19/16 06:53 Dose: 1 amp Albuterol/Ipratropium (Duoneb -) 1 amp NEB TIDR [facility] [place] Last Admin: 03/22/16 06:29 Dose: 1 amp Aspirin (Asa -) 81 mg PO DAILY [facility] [place] Last Admin: 03/21/16 10:12 Dose: 81 mg Docusate Sodium (Colace -) 100 mg PO BID [facility] Last Admin: 03/21/16 22:52 Dose: 100 mg Azithromycin (Zithromax 500mg Ivpb (Pre-Docked)) 250 mls @ 250 mls/hr IVPB DAILY [facility] [place] Last Admin: 03/21/16 10:12 Dose: 250 mls/hr Ceftriaxone Sodium (Rocephin 2gm Ivpb (Pre-Docked)) 100 mls @ 200 mls/hr IVPB DAILY [facility] [place] Last Admin: 03/21/16 10:12 Dose: 200 mls/hr Insulin Aspart (Novolog Vial Sliding Scale -) 1 vial SQ ACHS [facility] PRN Reason: Protocol Last Admin: 03/22/16 06:49 Dose: 3 units Insulin Detemir (Levemir Vial) 35 units SQ AM [facility] Last Admin: 03/22/16 06:48 Dose: 35 units Metformin HCl (Glucophage -) 500 mg PO BID@0700,1630 [facility] [place] Last Admin: 03/22/16 06:47 Dose: 500 mg Methylprednisolone Sodium Succinate (Solu-Medrol -) 40 mg IVPB BID [facility] [place] Last Admin: 03/21/16 22:51 Dose: 40 mg Nifedipine (Procardia Xl -) 60 mg PO DAILY [facility] [place] Last Admin: 03/21/16 10:11 Dose: 60 mg Quinapril HCl (Accupril -) 20 mg PO DAILY [facility] [place] Last Admin: 03/21/16 10:12 Dose: 20 mg Sitagliptin Phosphate (Januvia -) 50 mg PO BIDI [facility] [place] Last Admin: 03/22/16 06:47 Dose: 50 mg - Objective Vital Signs: Vital Signs Temperature 97.9 F 03/22/16 08:43 Pulse Rate 71 03/22/16 08:43 Respiratory Rate 20 03/22/16 08:45 Blood Pressure 124/63 03/22/16 08:43 O2 Sat by Pulse Oximetry (%) 96 03/21/16 21:00 Eyes: Yes: WNL, Conjunctiva Clear, EOM Intact HENT: Yes: WNL, Atraumatic, Normocephalic Neck: Yes: WNL, Supple, Trachea Midline Cardiovascular: Yes: WNL, Regular Rate and Rhythm Respiratory: Yes: WNL, Regular, CTA Bilaterally Gastrointestinal: Yes: WNL, Normal Bowel Sounds Genitourinary: Yes: WNL Musculoskeletal: Yes: WNL Extremities: Yes: WNL Edema: No Integumentary: Yes: WNL Neurological: Yes: WNL, Alert, Oriented ...Motor Strength: WNL Psychiatric: Yes: WNL Labs: CBC, BMP 03/20/16 06:05 03/20/16 06:05 INR, PTT INR 1.09 (0.82-1.09) 03/18/16 12:01 Assessment/Plan IMP: DM PNA REC: Abx as per ID Supplimental O2 as needed Nebs Out of bed- venodynes while in bed. Colace PRN Plan for d/c when ID determines abx can be swtiched to PO.
--- NOTE | 2016-03-22 10:19 | PN ---
Progress Note, Physician History of Present Illness: PULMONARY ALERT,NAD,-SOB,-COUGH - Current Medication List Current Medications: Active Medications Acetaminophen (Tylenol -) 650 mg PO Q6H PRN PRN Reason: FEVER OR PAIN Albuterol Sulfate (Ventolin 0.083% Nebulizer Soln -) 1 amp NEB Q4H PRN PRN Reason: SHORT OF BREATH/WHEEZING Last Admin: 03/19/16 06:53 Dose: 1 amp Albuterol/Ipratropium (Duoneb -) 1 amp NEB TIDR [facility] Last Admin: 03/22/16 06:29 Dose: 1 amp Aspirin (Asa -) 81 mg PO DAILY [facility] Last Admin: 03/21/16 10:12 Dose: 81 mg Docusate Sodium (Colace -) 100 mg PO BID [facility] Last Admin: 03/21/16 22:52 Dose: 100 mg Azithromycin (Zithromax 500mg Ivpb (Pre-Docked)) 250 mls @ 250 mls/hr IVPB DAILY [facility] Last Admin: 03/21/16 10:12 Dose: 250 mls/hr Ceftriaxone Sodium (Rocephin 2gm Ivpb (Pre-Docked)) 100 mls @ 200 mls/hr IVPB DAILY [facility] Last Admin: 03/21/16 10:12 Dose: 200 mls/hr Insulin Aspart (Novolog Vial Sliding Scale -) 1 vial SQ ACHS [facility] PRN Reason: Protocol Last Admin: 03/22/16 06:49 Dose: 3 units Insulin Detemir (Levemir Vial) 35 units SQ AM [facility] Last Admin: 03/22/16 06:48 Dose: 35 units Metformin HCl (Glucophage -) 500 mg PO BID@0700,1630 [facility] Last Admin: 03/22/16 06:47 Dose: 500 mg Methylprednisolone Sodium Succinate (Solu-Medrol -) 40 mg IVPB BID [facility] Last Admin: 03/21/16 22:51 Dose: 40 mg Nifedipine (Procardia Xl -) 60 mg PO DAILY [facility] Last Admin: 03/21/16 10:11 Dose: 60 mg Quinapril HCl (Accupril -) 20 mg PO DAILY [facility] Last Admin: 03/21/16 10:12 Dose: 20 mg Sitagliptin Phosphate (Januvia -) 50 mg PO BIDI [facility] Last Admin: 03/22/16 06:47 Dose: 50 mg - Objective Vital Signs: Vital Signs Temperature 97.9 F 03/22/16 08:43 Pulse Rate 71 03/22/16 08:43 Respiratory Rate 20 03/22/16 08:45 Blood Pressure 124/63 03/22/16 08:43 O2 Sat by Pulse Oximetry (%) 96 03/21/16 21:00 Constitutional: Yes: Well Nourished, Calm Eyes: Yes: WNL HENT: Yes: WNL Neck: Yes: WNL Cardiovascular: Yes: Regular Rate and Rhythm, S1, S2 Respiratory: Yes: Rales (FEW CRACKLES LEFT BASE) Gastrointestinal: Yes: Normal Bowel Sounds, Soft Extremities: Yes: WNL Edema: Yes Labs: CBC, BMP 03/20/16 06:05 03/20/16 06:05 INR, PTT INR 1.09 (0.82-1.09) 03/18/16 12:01 Assessment/Plan Problem List - Problems (1) Pneumonia Code(s): J18.9 - PNEUMONIA, UNSPECIFIED ORGANISM Qualifiers: Pneumonia type: due to unspecified organism Laterality: left Lung location: lower lobe of lung Qualified Code(s): J18.9 - Pneumonia, unspecified organism (2) Hypoxia Code(s): R09.02 - HYPOXEMIA (3) Diabetes Code(s): E11.9 - TYPE 2 DIABETES MELLITUS WITHOUT COMPLICATIONS (4) HTN (hypertension) Code(s): I10 - ESSENTIAL (PRIMARY) HYPERTENSION (5) Acute bronchospasm Code(s): J98.01 - ACUTE BRONCHOSPASM Assessment/Plan LLL Pneumonia Acute Bronchospasm HTN DM - continue antibiotics for CAP - steroid taper - inhaled bronchodilators - glucose control while on systemic steroids - O2 to keep SpO2 >90% - DVT prophylaxis DR MOLINA
[2016-03-22] MEDS: DOCUSATE SODIUM 100 MG CAPSULE (FP) PO SCH (10:41)
[2016-03-22] MEDS: methylPREDNISolone NA SUCC 40 MG/1 ML VIAL IVPB SCH (10:41)
[2016-03-22] MEDS: CEFTRIAXONE 100 ML IVPB SCH (10:41)
[2016-03-22] MEDS: ASPIRIN 81 MG CHEWABLE TABLETS PO SCH (10:41)
[2016-03-22] MEDS: NIFEdipine E.R 60 MG TABLET (UD) PO SCH (10:41)
[2016-03-22] MEDS: QUINAPRIL HCL 20 MG TABLET (FP) PO SCH (10:42)
[2016-03-22] MEDS: AZITHROMYCIN IVPB 250 ML IVPB SCH (10:42)
[2016-03-22 14:47] VITALS: BP 126/61; PULSE 79; TEMP 98.2
[2016-03-23] MEDS ORDERED: LEVOFLOXACIN 500 MG TABLET (FP) PO SCH (06:00)
[2016-03-23] MEDS ORDERED: predniSONE 20 MG TABLET (UD) PO SCH ×2 (10:00)
== END 2016-03-22 17:23 | disposition home or self-care (01) | DRG 193 ==
LOC: JER 11:35 → JERBED 14:26 → J4W 16:40
PROVIDERS: ADMIT Internal Medicine Cardiovascular Disease; ATTEND Internal Medicine Cardiovascular Disease
DX: J18.9 Pneumonia, unspecified organism (principal); E11.00 Type 2 diabetes mellitus with hyperosmolarity without nonketotic hyperglycemic-hyperosmolar coma (NKHHC); J44.1 Chronic obstructive pulmonary disease with (acute) exacerbation; J98.01 Acute bronchospasm; I10 Essential (primary) hypertension; E78.5 Hyperlipidemia, unspecified; M19.90 Unspecified osteoarthritis, unspecified site; R09.02 Hypoxemia; E11.319 Type 2 diabetes mellitus with unspecified diabetic retinopathy without macular edema; E11.65 Type 2 diabetes mellitus with hyperglycemia; Z79.4 Long term (current) use of insulin; E88.81 Metabolic syndrome and other insulin resistance
CPT/HCPCS: 36415; 71010-TC; 71020-TC; 71275-TC; 80048; 80076; 81003; 81015; 82550; 82803; 83036; 83605; 84484; 85025; 85610; 85730; 86850; 86900; 86901; 87040; 87086; 87804; 87899; 93005; 93010; 94640; 94667; 97116-GP; 97163-GP; 99284-25

== ENCOUNTER 2020-05-13 17:35 | Emergency (ER) | payer OTHER, MEDICARE ==
[2020-05-13] MEDS ORDERED: BAMLANIVIMAB 700 MG in SODIUM CHLORIDE 250 ML IVPB ONE (17:56)
[2020-05-13 19:42] VITALS: BMI 37.8
[2020-05-13 20:00] VITALS: PULSE 81
[2020-05-13 20:37] LABS: HEMATOCRIT 34.9 % (35.4-49); HEMOGLOBIN 11.5 GM/dL (11.7-16.9); MCH 28.2 pg (25.7-33.7); MEAN CELL VOLUME 85.5 fl (80-96); MEAN PLT VOLUME 8.5 fl (7.5-11.1); PLATELET COUNT 150 K/MM3 (134-434); RBC 4.08 M/mm3 (4.00-5.60); RDW 14.8 % (11.9-15.9); WHITE BLOOD COUNT 5.2 K/mm3 (4.0-10.0)
[2020-05-13 21:02] LABS: POTASSIUM 3.9 mmol/L (3.5-5.1)
[2020-05-13 21:03] LABS: CALCIUM 8.4 mg/dL (8.5-10.1)
[2020-05-13 21:07] LABS: CREATININE 1.1 mg/dL (0.55-1.3)
[2020-05-13 22:06] VITALS: BP 138/65; TEMP 98.6
== END 2020-05-13 22:12 | disposition home or self-care (01) ==
LOC: JCOVINFU 17:35
DX: U07.1 COVID-19 (principal)
CPT/HCPCS: 36415; 80048; 85027; 99284-25; M0239; Q0239